=== PATIENT | female | born 1975 | race Two or more races ===

== ENCOUNTER 2021-08-08 05:28 | Inpatient (IN) | payer BC ==
[~2021-08-08] VITALS: Ht 167.6 cm; Wt 76.5 kg
[2021-08-08 13:15] VITALS: BP 140/110
--- NOTE | 2021-08-08 13:20 | NUR ---
Nursing Admit Note: Patient admitted to [facility] at 1320. Patient skin check completed and nasal swab done and sent to the lab. Patient cooperative and pleasant. Patient admitted for "Client initially presented to [facility] ([facility] - ED), expressing a depression w/SI. During triage process, Client ran away from triage nurse and stated "I'm just going to kill lmyself." [facility] ED Staff called welfare check and Ct was brought back to ED by law enforcement. ED Physician placed Ct on . Per 5150, "Ms. 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 She reported that all of these have been exacerbated by a slow recovery following having been intensely ill with COVID 19. She described profound negative self talk, sense of worthlessness, was not future oriented, and described feeling a lack of agency in being able to change her circumstances. She reported suicidal ideation and appeared to minimize the intensity of SI, initially making statements about thinking of killiing herself, and once she learned of potential hospitalization, she attempted to back track her statements. Ct unable to safety plan. Meets criteria for DTS.
[2021-08-08] MEDS ORDERED: acetaminophen 325mg tablet PO PRN ×2 (13:30)
[2021-08-08] MEDS ORDERED: loperamide 2mg capsule PO PRN (13:30)
[2021-08-08] MEDS ORDERED: magnesium hydroxide 30ml (MOM) UD suspension PO PRN (13:30)
[2021-08-08] MEDS ORDERED: mag hydrox/Alum hydrox/simeth 30ml oral suspension PO PRN (13:30)
[2021-08-08] MEDS ORDERED: Melatonin 3mg tablet PO SCH (21:00)
--- NOTE | 2021-08-09 00:44 | NUR ---
Nursing Progress Note Legal hold: 5150 Client on involuntary status for DTS Report received from ORAL Hutton with use of SBAR Why are they here: Patient admitted for expressing a depression w S/I during triage process at [facility]. Client ran away from triage nurse and stated, "I'm going to kill myself." Pt brought back to ED by law enforcement where physician placed Pt on 1798. Assessment What has happened this shift: Patient was resting in bed at shift change. Pt is appropriate and polite. Patient states if she thought that she would be placed on a hold she never would have gone to the hospital. Patient states that she believes in autonomy and doesn't believe being held represents that. Patient reports being on a low carb keto diet where she is restricted in the things she can eat, and that she also had gestational diabetes so eating low carb helps maintain that. Patient reports recently having Covid and that the recovery from covid is what is making her depressed. Patient reports gaining 40lbs this year and not being able to jog due to breathing restrictions. Pt also reports 2 friends dying due to Covid and world events that she cannot fix. Pt states she has no plans to harm herself at this time she feels hopeless against the world. Pt played Apple [employer] App[employer] in community room with cohorts, ate cheese sticks and took meatonin w/o complications. Pt went to sleep shortly after. S/I, H/I: denies; denies HI A/VH: Denies Sleep: See sleep hours ADL's: Independent Group attendance: N/A Were meds taken: Yes Any med S/E: None observed or reported. Mental Status Exam Appearance: Thin young appearing woman, neat, clean wearing casual personal clothing. Eye contact: Fair Behavior: Cooperative, anxious, social Speech: Clear, normal rate/ volume Mood: depressed Affect: Constricted Thought process: Linear Thought Content: world events Cognition: A&O x4 Insight: Fair Judgment: Fair Interventions PRN's used: Melatonin 6mg Therapeutic interventions: Provided 1:1 assessment with therapeutic communication and active listening, encouraged deep breathing and open communication, medication administration/education/ monitoring, provided positive encouragement, monitored behavior and need for intervention, and maintained Q 15min safety checks. Restraints/seclusion/emergency medication: N/A Justification of Continued Inpatient Treatment: Per ARIANA Draper, pt. continues to require a safe and supportive environment.
--- NOTE | 2021-08-09 02:59 | NUR ---
Patient woke up crying stating that she had a nightmare. Pt asked for medications to make the bad dreams go away. When discussing different medications with the pt, the pt reports that most meds have paradoxical effects or don't work. Pt reports lighting candles at home and chanting unusually works. pt decides that medication wont work and tries deep breathing technique.
[2021-08-09] MEDS ORDERED: hydrOXYzine 25 MG tablet PO PRN (04:25)
[2021-08-09 08:00] VITALS: BP 117/81
[2021-08-09 08:01] LABS: CHOL/HDL RATIO 4.6 (0.00-4.99); CHOLESTEROL 251 MG/DL (0-200); HDL CHOLESTEROL 54 MG/DL (35-60); LDL CHOLESTEROL 159 MG/DL (50-100); TRIGLYCERIDES 113 MG/DL (20-135)
--- NOTE | 2021-08-09 08:40 | NUR ---
Noted pt carb controlled diet order in EMR "NO carbs, just meat and vegetables and nuts please": RD d/w RN and pt via TC must send minimum 45g CHO per meal in order to meet minimum estimated needs per ADA guidelines. Pt reports follows "keto/paleo/primal" diet at home consumes 30g CHO per day and checks Glu via glucometer though no official DX of DM only hx gestational DM. Pt reports no DM DX but after consumes CHO Glu is 180mg/dl; A1C pending this admit. Pt reports eats no gluten, processed eggs/yogurts/dressings; dietary notified of pt preferences. RD d/w RN regarding pt low CHO intake at home not conducive to well-balance nutritional intake. Addendum: 08/09/21 at [address] Amended: Links added.
--- NOTE | 2021-08-09 09:02 | NUR ---
Assessment: Clinician met with pt and engaged her in completing her psychosocial assessment, Pt signed JERRI & TP #9. MSE: A/O-X4 TP- linear TC- denies & minimizes SI; denies HI/AH/VH/TH; no delusional statements noted Mood-irritable Affect-Blunted BXS-Cooperative Insight- Fair-guarded (pt appears to minimize sxs) [id number] (facing lots of stressors) Speech- WNL Pt would like to d/c when 5150 expires and plans to rt home and f/u with PMD. Hanna Suarez SALVAGE DIVER Addendum: 08/10/21 at 0908 by Hanna Suarez SS Amended: Links added.
[2021-08-09 14:22] LABS: HEMOGLOBIN A1C 5.1 % (4.5-6.2)
--- NOTE | 2021-08-09 17:18 | NUR ---
Nursing Progress Note Legal hold: 5150 Client on involuntary status for DTS Report received from ORAL Joyner with use of SBAR Why are they here: Patient admitted for expressing a depression w S/I during triage process at [facility]. Client ran away from triage nurse and stated, "I'm going to kill myself." Pt brought back to ED by law enforcement where physician placed Pt on 1798. Assessment What has happened this shift: Received patient while she was sleeping in bed. Patient woke up at approximately 0715 and was drinking a cup of coffee sitting in a chair in the hallway. Patient went to the Community Room for breakfast and attempted to eat her breakfast with the restrictions she had. Patient only ate a small amount of food this morning. In an effort to have the patient eat her meals, Khadar galaviz Dietitian was contacted at 0915. Patient spoke directly with Khadar over the phone, and discussed her current intake of carbohydrates and food that she would be willing to eat. Spoke to FABIO Rubalcava after he spoke directly to the patient, and he informed that the patient disclosed that her intake of carbohydrates is 30 grams of carbohydrates per day. Khadar informed that the number of carbohydrates was extremely low and he asked that I inform Dr. Whitfield of our conversation. Dr. Whitfield made rounds with the patient at approximately [address] In[address] Whitfield at this time. Patient attended and participated the morning Group Meeting and the afternoon Group Meeting. Patient ate lunch in the Community Room and then went to the second Group Meeting then returned to her room to rest. S/I, H/I: Denies A/VH: Denies Sleep: 5.0 hours. ADL's: Independent Group attendance: Attended Morning & Afternoon Group Meeting & Participated. Were meds taken: No medications ordered for today. Any med S/E: No medications given today. Mental Status Exam Appearance: Thin young appearing woman, neat, clean wearing casual personal clothing. Eye contact: Fair Behavior: Cooperative, anxious, social Speech: Clear, normal rate/ volume Mood: Comfortable Affect: Constricted Thought process: Linear Thought Content: Cognition: A&O x4 Insight: Fair Judgment: Fair Interventions PRN's used: None Therapeutic interventions: Provided 1:1 assessment with therapeutic communication and active listening, encouraged deep breathing and open communication, medication administration/education/ monitoring, provided positive encouragement, monitored behavior and need for intervention, and maintained Q 15min safety checks. Restraints/seclusion/emergency medication: N/A Justification of Continued Inpatient Treatment: Per ARIANA Draper, pt. continues to require a safe and supportive environment.
[2021-08-09 20:23] VITALS: BP 128/86
[2021-08-09] MEDS: traZODone 50mg tablet PO SCH (20:38)
[2021-08-09] MEDS ORDERED: Melatonin 3mg tablet PO ONE (22:00)
--- NOTE | 2021-08-09 23:28 | NUR ---
Nursing Progress Note Legal hold: 5150 Client on involuntary status for DTS Report received from ORAL Perez with use of SBAR Why are they here: Patient admitted for expressing a depression w S/I during triage process at [facility]. Client ran away from triage nurse and stated, "I'm going to kill myself." Pt brought back to ED by law enforcement where physician placed Pt on 1798. Assessment What has happened this shift: P in room reading book at shift change. Pt is labile a times. Patient denies S/I. Patient expressed looking forward to trying a new medication Baron LANE had prescribed for her. Patient got anxious before snack time. Patient did not want to sit with cohorts because they were watching TV that was to vulgar. Patient then walked down hallway talking about the pictures on the wall and how serene they were. Pt ate snack in community room isolated to self. Pt took medication. Patient approached this nurse an hour after taking medications and states she is wide awake and suggested the melatonin was better for sleeping. Dr Whitfield put in a one time order for 6mg of melatonin and then the pt went to sleep w/o further complications. S/I, H/I: Denies A/VH: Denies Sleep: See sleep hours ADL's: Independent Group attendance:No group in the evenings Were meds taken:yes Any med S/E: No Mental Status Exam Appearance: Thin young appearing woman, neat, clean wearing casual personal clothing. Eye contact: Fair Behavior: Cooperative, anxious, social Speech: Clear, normal rate/ volume Mood:labile Affect: Constricted Thought process: Linear Thought Content: being peaceful Cognition: A&O x4 Insight: Fair Judgment: Fair Interventions PRN's used: None Therapeutic interventions: Provided 1:1 assessment with therapeutic communication and active listening, encouraged deep breathing and open communication, medication administration/education/ monitoring, provided positive encouragement, monitored behavior and need for intervention, and maintained Q 15min safety checks. Restraints/seclusion/emergency medication: N/A Justification of Continued Inpatient Treatment: Per ARIANA Darper, pt. continues to require a safe and supportive environment.
[2021-08-10 07:43] VITALS: BP 111/75
[2021-08-10] MEDS ORDERED: ESCITALOPRAM OXALATE 5 MG TABLET PO ONE (09:20)
--- NOTE | 2021-08-10 18:02 | NUR ---
Nursing Progress Note Legal hold: 5150 Client on involuntary status for DTS Report received from RN with use of SBAR Why are they here: Patient admitted for expressing a depression w S/I during triage process at [facility]. Client ran away from triage nurse and stated, "I'm going to kill myself." Pt brought back to ED by law enforcement where physician placed Pt on 1798. Assessment What has happened this shift: Received Pt sleeping in her room w/o distress at the beginning of the shift. Pt woke and was cooperative with vitals and returned to sleep. Pt woke and ate breakfast well. Pt started on Lexapro 5mg which she wanted to start. Pt feels she shouldnt be here and was not properly assessed via video in ER where she is from. Pt is worried about paying for this hospitalization and the ambulance ride. She reports being vegetarian, low carb, keto diet. She ate cheese sticks in mid morning and cottage cheese did not come with lunch , which was called to dietary. Late in day, her diet order changed to vegetarian with comments about cheese, nuts, salads as likes. Pt states that covid restrictions on socialization and overall societal restrictions are bringing back memories and dreams related to past traumas. Overall cooperative with anxiety about having to be here. Pt attended group and participated. S/I, H/I: Denies A/VH: Denies Sleep: None this shift ADL's: Independent Group attendance: Attended Morning group Were meds taken: Yes Any med S/E: None reported or noted Mental Status Exam Appearance: Casual in green scrubs Eye contact: Fair Behavior: Cooperative, anxious Speech: Clear, coherent Mood: Mildly anxious Affect: Constricted Thought process: Linear Thought Content: Being held against her will Cognition: A&O x4 Insight: Fair Judgment: Fair Interventions PRN's used: None Therapeutic interventions: Provided 1:1 assessment with therapeutic communication and active listening, encouraged deep breathing and open communication, medication administration/education/ monitoring, provided positive encouragement, monitored behavior and need for intervention, and maintained Q 15min safety checks. Restraints/seclusion/emergency medication: N/A Justification of Continued Inpatient Treatment: Per MD, pt. continues to require a safe and supportive environment.
[2021-08-10 20:00] VITALS: BP 125/82
[2021-08-10] MEDS: traZODone 50mg tablet PO SCH (20:59)
--- NOTE | 2021-08-11 03:25 | NUR ---
Nursing Progress Note Legal hold: 5150 Client on involuntary status for DTS Report received from Ana MIXON with use of SBAR Why are they here: Patient admitted for expressing a depression w S/I during triage process at [facility]. Client ran away from triage nurse and stated, "I'm going to kill myself." Pt brought back to ED by law enforcement where physician placed Pt on 1798. Assessment What has happened this shift: Pt lying in bed at the start of the shift and spent most of her time there. She did shower this shift. Pt reports feeling better tonight and states she is starting to feel like her "old self." She reports thinking about the future and doing activities that she enjoys, which she states recently she has been unable to do. Denies any thought of suicide at this time. S/I, H/I: Denies A/VH: Denies Sleep: slept well throughout the shift with scheduled Trazadone ADL's: Independent Group attendance: N/A Were meds taken: Yes Any med S/E: None reported or noted Mental Status Exam Appearance: Casual in green scrubs Eye contact: Fair Behavior: Cooperative Speech: Clear, coherent Mood: "feeling better" Affect: euthymic Thought process: Linear Thought Content: appropriate, WNL Cognition: A&O x4 Insight: Fair Judgment: Fair Interventions PRN's used: None Therapeutic interventions: Provided 1:1 assessment with therapeutic communication and active listening, encouraged deep breathing and open communication, medication administration/education/ monitoring, provided positive encouragement, monitored behavior and need for intervention, and maintained Q 15min safety checks. Restraints/seclusion/emergency medication: N/A Justification of Continued Inpatient Treatment: Per MD, pt. continues to require a safe and supportive environment.
[2021-08-11 07:43] VITALS: BP 102/70
[2021-08-11] MEDS: ESCITALOPRAM OXALATE 5 MG TABLET PO SCH (08:16)
--- NOTE | 2021-08-11 11:09 | NUR ---
Pt. attended group today. Each pt. scaled their mood and anxiety level today to practice scaling. We discussed how this can be used as a safety plan tying coping skills to each increment on the scale. We also talked about the functioning of the Limbic System and how it relates to anxiety, depression and anger. Pt. engaged in the group well. She was alert and oriented X 4. Her demeanor was calm and pleasant to work with. She appears to enjoy socializing and attending group. She is open with her thoughts and shares freely. She was able to scale where her depressive feelings where at today. Claire Barrow LCSW
--- NOTE | 2021-08-11 14:51 | NUR ---
Nursing Progress Note Legal hold: 5150 Client on involuntary status for DTS Report received from ORAL White with use of SBAR Why are they here: Patient admitted for expressing a depression w S/I during triage process at [facility]. Client ran away from triage nurse and stated, "I'm going to kill myself." Pt brought back to ED by law enforcement where physician placed Pt on 1798. Assessment What has happened this shift: Received Pt sleeping at the beginning of the shift. Pt joined the others in the community room for meals. Pt is cooperative with AM assessment. Pt c/o of a scab on her upper back. She is concerned the scab is falling off. Applied a band-aid to the scab as requested by the pt. Pt again shares she does not think she should be here. She isolates to her room most of the day. S/I, H/I: Denies A/VH: Denies Sleep: Pt appeared to be sleeping in the early afternoon ADL's: Independent Group attendance: N/A Were Meds taken: Yes Any med S/E: None reported or noted Mental Status Exam Appearance: Casual in green scrubs Eye contact: Fair Behavior: Cooperative, anxious Speech: Clear, coherent Mood: Mildly anxious Affect: Constricted Thought process: Linear Thought Content: "I should not be here." Cognition: A&O x4 Insight: Fair Judgment: Fair Interventions PRN's used: None Therapeutic interventions: Provided 1:1 assessment with therapeutic communication and active listening, encouraged deep breathing and open communication, medication administration/education/ monitoring, provided positive encouragement, monitored behavior and need for intervention, and maintained Q 15min safety checks. Restraints/seclusion/emergency medication: N/A Justification of Continued Inpatient Treatment: Per , pt. continues to require a safe and supportive environment. Addendum: 08/11/21 at 1654 by Bisi Francisco RN Pt signed in Voluntary
[2021-08-11 20:00] VITALS: BP 118/77
[2021-08-11] MEDS: traZODone 50mg tablet PO SCH ×2 (20:10→22:53)
--- NOTE | 2021-08-12 04:23 | NUR ---
Nursing Progress Note Legal hold: 5150 Client on involuntary status for DTS Report received from ORAL Perez with use of SBAR Why are they here: Patient admitted for expressing a depression w S/I during triage process at [facility]. Client ran away from triage nurse and stated, "I'm going to kill myself." Pt brought back to ED by law enforcement where physician placed Pt on 1798. Assessment What has happened this shift: Patient was found laying in bed at beginning of shift. Patient was later observed trying to call family. Patient called multiple family members and became upset with what they had said and refused to talk to nurse when came in to do 1:1. Patient was polite and cooperative later but had no interest in going out to snack time. Patient was given 25mg of trazodone and went to bed. S/I, H/I: Denies A/VH: Denies Sleep: See sleep assessment ADL's: Independent Group attendance: N/A Were Meds taken: Yes Any med S/E: None reported or noted Mental Status Exam Appearance: Dressed in personal clothing and green scrubs Eye contact: Fair Behavior: Cooperative, anxious, sad Speech: Clear, coherent Mood: Mildly anxious Affect: Constricted Thought process: Linear Thought Content: Calling family Cognition: A&O x4 Insight: Fair Judgment: Fair Interventions PRN's used: None Therapeutic interventions: Provided 1:1 assessment with therapeutic communication and active listening, encouraged deep breathing and open communication, medication administration/education/ monitoring, provided positive encouragement, monitored behavior and need for intervention, and maintained Q 15min safety checks. Restraints/seclusion/emergency medication: N/A Justification of Continued Inpatient Treatment: Per MD, pt. continues to require a safe and supportive environment.
--- NOTE | 2021-08-12 07:39 | NUR ---
Initial: pt admitted w/ Suicidal ideations per EMR. Currently on Vegetarian/Carb controlled diet w/ low PO intake, avg 30% x 10 meals. Carb controlled diet not indicated at this time given A1c 5.1 though pt has a preference for lower carb meals. TC to RN to confirm if pt is actually vegetarian and if the pt would be accepting of ONS. RN states they will ask the pt once she wakes up. LBM 4/5. Will continue to monitor. Recs: 1. Continue Vegetarian/Carb controlled diet per pt preference 2. Ensure Enlive TID if pt will be accepting 3. Peanut butter, cottage cheese, fruit TID per pt preference 4. Bowel care per rx 5. Weekly wts Addendum: 08/12/21 at [address] Amended: Links added.
[2021-08-12 08:09] VITALS: BP 106/73
[2021-08-12] MEDS: ESCITALOPRAM OXALATE 5 MG TABLET PO SCH (08:16)
--- NOTE | 2021-08-12 09:00 | NUR ---
Pt attended both groups today. In the first group we talked about Self Nurturing about how to curate spaces of nurture/self-care for themselves. In the second group we did an Expressive Art Exercise where they annmarie out their path to wellness which mapped out how they will keep themselves well. Pt. engaged appropriately in the groups today. She was alert and oriented X 4. Her thought content and thought process were WNL. Her demeanor was calm, compliant and pleasant to work with. She easily wrote down many spaces, places and people that she identifies as safe and nurturing but reported that the problem is that when she feels down it is hard to follow through with reaching out. She did report she realizes she needs to let more of her support people know how much she has been struggling. For her expressive art piece she annmarie a tree and shared how the different ways of taking care of the tree and how that correlates to her own path to wellness. Claire Barrow, RV DETAILER
--- NOTE | 2021-08-12 11:29 | NUR ---
DCP Presenting Issues: Pt's on a Vol stay and may d/c tomorrow. Interventions: Clinician met w/pt and reviewed dcp with her. Per session pt agreed to follow up w/PMD @ the [facility] and will contact a friend to pick her up at d/c. Plan: Pt to d/c in a day or 2, pt will go home and f/u at the [facility]. Pt will contact her friend for transportation. Hanna Suarez LCSW Addendum: 08/12/21 at 1132 by Hanna Suarez SS Amended: Links added.
--- NOTE | 2021-08-12 17:37 | NUR ---
Nursing Progress Note: Tracy Salmon Legal hold: Voluntary Client on involuntary status for DTS Report received from ORAL White with use of SBAR Why are they here: Patient admitted for expressing a depression w S/I during triage process at [facility]. Client ran away from triage nurse and stated, "I'm going to kill myself." Pt brought back to ED by law enforcement where physician placed Pt on 1798. Assessment What has happened this shift: Patient received walking around the unit at change of shift. She endorsed having a dry nose/ chapped lips and was provided with lip moisturizer. Patient observed participating in the group room with peers for breakfast. She was receptive to scheduled medication and 1:1 assessment. Patient observed quietly sitting on the floor of her room doing yoga after breakfast. She denies SI/HI, AH or VH. Does not appear to be responding to internal stimuli. Patient observed sitting in the recreation room reading a book later in the morning. She participated in group therapy with peers, noted engaging appropriately. Patient was observed to be active on the unit throughout the day. She was observed watching television with peers in the group room periodically. She participated for all meal and snack times today. Patient observed napping intermittently throughout the shift. S/I, H/I: Denies A/VH: Denies. Does not appear to be responding to IS. Sleep: Pt slept 7.75 hours last night, napped intermittently throughout this shift. ADL's: Independent Group attendance: Yes Were Meds taken: Yes Any med S/E: None reported or noted Mental Status Exam Appearance: Casual in green scrubs, disheveled hair in a bun Eye contact: Fair Behavior: Cooperative, anxious Speech: Clear, coherent Mood: Mildly anxious Affect: Constricted Thought process: Linear Thought Content: Meeting needs Cognition: A&O x4 Insight: Fair Judgment: Fair Interventions PRN's used: None Therapeutic interventions: Provided 1:1 assessment with therapeutic communication and active listening, encouraged deep breathing and open communication, medication administration/education/ monitoring, provided positive encouragement, monitored behavior and need for intervention, and maintained Q 15min safety checks. Restraints/seclusion/emergency medication: N/A Justification of Continued Inpatient Treatment: Per MD, pt. continues to require a safe and supportive environment.
[2021-08-12 20:00] VITALS: BP 110/69
[2021-08-12] MEDS: traZODone 50mg tablet PO SCH ×2 (22:15→23:17)
--- NOTE | 2021-08-13 03:15 | NUR ---
Nursing Progress Note: Legal hold: Voluntary. Client on involuntary status for DTS. Report received from SIMEON Suarez with use of SBAR Why are they here: Patient admitted for expressing a depression w S/I during triage process at [facility]. Client ran away from triage nurse and stated, "I'm going to kill myself." Pt brought back to ED by law enforcement where physician placed Pt on [id number]. Assessment What has happened this shift: Patient is observed socializing lightly with others following shift change. 1:1 Interview in recreation room. Patient is well oriented and cooperative. She speaks happily about discharge home tomorrow. She denies S/I, H/I, or any hallucinations. 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 She speaks of the intermittent exterminator helper problems of having a major depressive order, "some people do not understand what it is like! Overall the patient presents with a positive outlook and looks forward to departure back home to the [facility]. Trazadone was given for sleep. S/I, H/I: Denies. A/VH: Denies. Sleep: Will tally mauri 0500 hours. ADL's: Independent Group attendance: No group on manager shift. Were Meds taken: Yes, medication compliant. Any med S/E: None reported or noted. Mental Status Exam Appearance: WNL. Eye contact: Good. Behavior: Cooperative, mild anxiety. Speech: Clear, normal rate, rhythm, and tone. Mood: Quiet, isolative. Affect: Blunted. Thought process: Linear. Thought Content: Focused on discharge, going home. Cognition: A&O x4 Insight: Fair. Judgment: Fair. Interventions PRN's used: Trazadone 25 mg X2. Therapeutic interventions: Provided 1:1 assessment with therapeutic communication and active listening, encouraged deep breathing and open communication, medication administration/education/ monitoring, provided positive encouragement, monitored behavior and need for intervention, and maintained Q 15min safety checks. Restraints/seclusion/emergency medication: N/A Justification of Continued Inpatient Treatment: Per MD, pt. continues to require a safe and supportive environment.
[2021-08-13] MEDS: ESCITALOPRAM OXALATE 5 MG TABLET PO SCH (07:44)
[2021-08-13] MEDS ORDERED: TRAZ-251 PO (07:45)
[2021-08-13] MEDS ORDERED: ESCI-8 PO (07:45)
[2021-08-13 09:15] VITALS: BP 107/65
--- NOTE | 2021-08-13 16:20 | NUR ---
Patient discharged and escorted from unit at approximately 1605. She is A&O x4, calm and cooperative, no s/s of distress. Discharge instructions reviewed and verbalized understanding with opportunity for all questions to be answered. Patients belongings inventoried by [employer] and returned to her. She was ambulatory from the unit with a steady gait. Patient picked up in front of main hospital entrance by friend. She left the hospital without incident.
== END 2021-08-13 16:13 | disposition home or self-care (01) | DRG 885 ==
LOC: ADULT MH 13:29
PROVIDERS: ADMIT Psychiatry & Neurology Psychiatry; ATTEND Psychiatry & Neurology Psychiatry
DX: F33.2 Major depressive disorder, recurrent severe without psychotic features (principal); R45.851 Suicidal ideations; F41.9 Anxiety disorder, unspecified; Z81.8 Family history of other mental and behavioral disorders; Z86.16 Personal history of COVID-19; Z82.3 Family history of stroke; Z81.1 Family history of alcohol abuse and dependence
CPT/HCPCS: 36415; 80061; 83036; 87081; Q0177